=== PATIENT | male | born 1980 | race Caucasian/White ===

== ENCOUNTER 2017-08-11 10:06 | Emergency (ER) | payer MEDICAID, OTHER ==
[~2017-08-11] VITALS: Ht 180.3 cm; Wt 90.7 kg
[2017-08-11 10:21] VITALS: BP_SYST 129
--- NOTE | 2017-08-11 10:27 | NUR ---
Ambulatory to bed 3 accompanied by
--- NOTE | 2017-08-11 10:39 | NUR ---
ER at bedside examining patient.
[2017-08-11] MEDS ORDERED: NACL 0.9% 1,000 ML IV ONE (10:43)
[2017-08-11] MEDS ORDERED: KETOROLAC TROMETHAMINE 30 MG VIAL IVP ONE (10:45)
[2017-08-11 11:02] LABS: BASOPHILS # (AUTO) 0.3 K/uL (0.0-0.2); BASOPHILS % (AUTO) 3.6 % (0.0-2.0); EOSINOPHILS % (AUTO) 0.2 % (0.0-4.0); HEMATOCRIT 51.2 % (36-54); HEMOGLOBIN 16.9 g/dL (14.0-18.0); LYMPHOCYTES # (AUTO) 1.3 K/uL (1.0-5.5); LYMPHOCYTES % (AUTO) 13.1 % (20.5-51.5); MEAN CORPUSCULAR HEMOGLOBIN 29 pg (27-31); MEAN CORPUSCULAR HGB CONC 33 % (32-36); MEAN CORPUSCULAR VOLUME 88 fL (79.0-98.0); MONOCYTES # (AUTO) 0.6 K/uL (0.0-1.0); MONOCYTES % (AUTO) 6.6 % (1.7-9.3); NEUTROPHILS # (AUTO) 7.4 K/uL (1.8-7.7); NEUTROPHILS % (AUTO) 76.5 % (40.0-70.0); PLATELET COUNT (AUTO) 181 K/uL (130-430); RED BLOOD CELL COUNT(AUTO) 5.83 MIL/uL (4.2-6.2); RED CELL DISTRIBUTION WIDTH 11.9 % (9.0-15.0); WHITE BLOOD COUNT (AUTO) 9.6 K/uL (4.8-10.8)
--- NOTE | 2017-08-11 11:08 | NUR ---
Medication was given to pt, tolerated it well. No noted adverse reaction, will continue to monitor.
[2017-08-11 11:15] LABS: CALCIUM 9.2 mg/dL (8.4-11.0); CREATININE 1.1 mg/dL (0.55-1.30); POTASSIUM 3.7 mmol/L (3.5-5.1)
[2017-08-11] MEDS ORDERED: AZITHROMYCIN 250 MG TABLET PO ONE (11:30)
[2017-08-11] MEDS ORDERED: cefTRIAXone 1 GM IVPB PREMIX 50 ML IV ONE (11:30)
--- NOTE | 2017-08-11 12:15 | NUR ---
Medication was given to pt, tolerated it well. No noted adverse reaction, will continue to monitor.
--- NOTE | 2017-08-11 12:31 | NUR ---
Patient given written and verbal discharge instructions and verbalizes understanding. ER MD discussed with patient the results and treatment provided. Patient in stable condition. ID arm band removed. IV catheter removed intact and dressing applied, no active bleeding. Rx of motrin, albuterol and augmentin given. Patient educated on pain management and to follow up with PMD. Pain Scale 3. Dr Villalobos is aware, pain medication given here and prescription for home. Opportunity for questions provided and answered.
[2017-08-11 12:38] VITALS: BP_SYST 120
== END 2017-08-11 12:38 | disposition home or self-care (01) ==
LOC: SED 10:06
DX: J10.00 Influenza due to other identified influenza virus with unspecified type of pneumonia (principal); F17.290 Nicotine dependence, other tobacco product, uncomplicated
CPT/HCPCS: 36415; 71045; 80048; 84484; 85025; 86710; 87040; 93005; 96361; 96365; 96375; 99285; J0696; J1885; J7030; Q0144